=== PATIENT | male | born 1950 | race African-American/Black ===

== ENCOUNTER 2022-06-04 11:24 | Inpatient (IN) | payer BC, MEDICAID ==
[~2022-06-04] VITALS: Ht 175.3 cm; Wt 118.6 kg
[2022-06-04] MEDS ORDERED: ASPIRIN 81MG TABLET PO ONE (12:15)
[2022-06-04 12:53] LABS: BASOPHILS % 0.5 % (0.0-2.0); EOSINOPHILS % 0.7 % (0.0-5.0); HEMATOCRIT. 43.1 % (42.0-52.0); HEMOGLOBIN. 14.6 g/dL (14.0-18.0); LYMPHOCYTES % 12.4 % (20.0-50.0); MEAN CORPUSCULAR HEMOGLOBIN 31.5 pg (28.0-32.0); MEAN CORPUSCULAR VOLUME 93.1 fL (80.0-94.0); MEAN PLATELET VOLUME 7.4 fl (7.4-10.4); NEUTROPHILS % 78.4 % (40.0-76.0); PLATELET 193 x1000/uL (130-400); RED BLOOD CELL COUNT 4.62 mill/uL (4.7-6.1); RED CELL DISTRIBUTION WIDTH 13.8 % (11.6-14.6)
[2022-06-04 13:05] LABS: INR 1.1; PROTHROMBIN TIME 11.9 sec (9.6-11.0)
[2022-06-04 13:06] LABS: CHLORIDE 105 mEq/L (98-107)
[2022-06-04] MEDS ORDERED: ASPIRIN 81MG TABLET PO NR (13:15)
[2022-06-04 13:19] LABS: ETHANOL BLOOD < 10 mg/dL
[2022-06-04] MEDS ORDERED: CEFTRIAXONE 2 G PREMIX 50 ML IV ONE (15:00)
[2022-06-04] MEDS ORDERED: AZITHROMYCIN 500MG/250ML 250 ML IV ONE (15:00)
[2022-06-04] MEDS ORDERED: CEFTRIAXONE 2 G in DEXTROSE 5% WATER 50 ML IV NR (15:30)
[2022-06-04 16:02] LABS: *AMPHETAMINES SCREEN URINE NEGATIVE (NEGATIVE); *BARBITURATES SCREEN URINE NEGATIVE (NEGATIVE); *BENZODIAZEPINES SCREEN URINE NEGATIVE (NEGATIVE); *COCAINE SCREEN URINE NEGATIVE (NEGATIVE); CANNABINOID URINE SCREEN NEGATIVE (NEGATIVE); METHADONE URINE SCREEN NEGATIVE (NEGATIVE); OPIATES URINE SCREEN PRESUMTIVE POSITIVE (NEGATIVE); PHENCYCLIDINE URINE SCREEN NEGATIVE (NEGATIVE)
[2022-06-05 05:38] VITALS: BP 115/90
[2022-06-05] MEDS ORDERED: LATA2.5D14 EACHEYE (05:39)
[2022-06-05] MEDS ORDERED: OMEP40CA20 PO (05:39)
[2022-06-05] MEDS ORDERED: BUPR-113 PO (05:39)
[2022-06-05] MEDS ORDERED: VENL75CA56 PO (05:39)
[2022-06-05] MEDS ORDERED: LOSA100T32 PO (05:39)
[2022-06-05] MEDS ORDERED: TRAZ-252 PO (05:39)
[2022-06-05] MEDS ORDERED: SILD100T69 PO (05:39)
[2022-06-05] MEDS ORDERED: BIMA2.5D4 EACHEYE (05:39)
[2022-06-05] MEDS ORDERED: ATOR20TA65 PO (05:39)
[2022-06-05] MEDS ORDERED: RIVA20TA PO (05:39)
[2022-06-05] MEDS ORDERED: NORT50CA PO (05:39)
[2022-06-05 05:44] VITALS: BP 115/90
[2022-06-05] MEDS ORDERED: REGADENOSON 0.4 MG/5 ML IV SCH (07:45)
[2022-06-05 08:00] VITALS: BP 134/80
[2022-06-05 08:11] LABS: BASOPHILS % 0.4 % (0.0-2.0); EOSINOPHILS % 1.4 % (0.0-5.0); HEMATOCRIT. 41.1 % (42.0-52.0); HEMOGLOBIN. 14.1 g/dL (14.0-18.0); LYMPHOCYTES % 17.2 % (20.0-50.0); MEAN CORPUSCULAR HEMOGLOBIN 32.4 pg (28.0-32.0); MEAN CORPUSCULAR VOLUME 94.5 fL (80.0-94.0); MEAN PLATELET VOLUME 7.8 fl (7.4-10.4); MONOCYTES % 6.9 % (2.0-8.0); NEUTROPHILS % 74.1 % (40.0-76.0); PLATELET 161 x1000/uL (130-400); RED BLOOD CELL COUNT 4.35 mill/uL (4.7-6.1); RED CELL DISTRIBUTION WIDTH 13.5 % (11.6-14.6)
[2022-06-05 08:23] LABS: CHLORIDE 104 mEq/L (98-107)
[2022-06-05] MEDS: PANTOPRAZOLE 40MG DR TABLET PO SCH (10:48)
[2022-06-05] MEDS: LOSARTAN POTASSIUM 100 MG TABLET PO SCH (10:48)
[2022-06-05 12:00] VITALS: BP 120/86
[2022-06-05] MEDS ORDERED: AZITHROMYCIN 500 MG in DEXT 5% WATER 250 ML IV SCH (15:00)
[2022-06-05] MEDS ORDERED: CEFTRIAXONE 1,000 MG in DEXTROSE 5% WATER 50 ML IV SCH (15:00)
[2022-06-05 16:00] VITALS: BP 146/86
[2022-06-05] MEDS ORDERED: RIVAROXABAN 20 MG TABLET PO SCH (17:00)
[2022-06-05 20:00] VITALS: BP 122/81
[2022-06-05] MEDS ORDERED: LATANOPROST 0.005% OPHTH DROPS 2.5ML EACHEYE SCH (21:00)
[2022-06-05] MEDS ORDERED: BIMATOPROST EACHEYE SCH (21:00)
[2022-06-05] MEDS ORDERED: ATORVASTATIN CALCIUM 20MG TABLET PO SCH (21:00)
[2022-06-06] VITALS: BP 155/93
[2022-06-06 08:00] VITALS: BP 131/85
[2022-06-06] MEDS ORDERED: REGADENOSON 0.4 MG/5 ML IV NR (08:30)
[2022-06-06] MEDS: PANTOPRAZOLE 40MG DR TABLET PO SCH (10:58)
[2022-06-06] MEDS: LOSARTAN POTASSIUM 100 MG TABLET PO SCH (10:58)
[2022-06-06 12:00] VITALS: BP 145/69
[2022-06-06 12:40] VITALS: BP 145/69
[2022-06-06] MEDS ORDERED: CARVEDILOL 3.125 MG TABLET PO SCH (21:00)
[2022-06-07] MEDS ORDERED: FAMOTIDINE 20MG TABLET PO SCH (07:40)
== END 2022-06-06 14:40 | disposition home or self-care (01) | DRG 205 ==
LOC: ER 11:24 → MICUSO 16:37 → EDBEDREQ 16:38 → EDBEDREQTM 16:38 → 7WST 06-05 05:34
PROVIDERS: ADMIT Internal Medicine; ATTEND Internal Medicine
DX: M94.0 Chondrocostal junction syndrome [Tietze] (principal); N17.0 Acute kidney failure with tubular necrosis; E44.1 Mild protein-calorie malnutrition; I42.9 Cardiomyopathy, unspecified; I48.0 Paroxysmal atrial fibrillation; I10 Essential (primary) hypertension; Z20.822 Contact with and (suspected) exposure to COVID-19; I25.10 Atherosclerotic heart disease of native coronary artery without angina pectoris; E78.00 Pure hypercholesterolemia, unspecified; F41.9 Anxiety disorder, unspecified; Z88.0 Allergy status to penicillin; Z68.38 Body mass index [BMI] 38.0-38.9, adult; Z95.5 Presence of coronary angioplasty implant and graft
CPT/HCPCS: 36415; 71045; 78452; 80048; 80053; 80305; 80320; 83880; 84484; 85025; 87426; 93005; 93017; 93306; 99285; A9500; C9803; J0456; J0696; J2785; J7060; G0480

== ENCOUNTER 2023-09-22 14:51 | Emergency (ER) | payer BC, MEDICAID ==
[~2023-09-22] VITALS: Ht 177.8 cm; Wt 109.0 kg
[~2023-09-22 14:51] MED LIST: ATOR20TA65 PO; BIMA2.5D4 EACHEYE; BUPR-113 PO; LATA2.5D14 EACHEYE; LOSA100T33 PO; NORT50CA PO; OMEP40CA20 PO; RIVA20TA PO; SILD100T69 PO; TRAZ-252 PO; VENL75CA56 PO
[2023-09-22 14:52] VITALS: O2SAT 98
[2023-09-22] MEDS: ACETAMINOPHEN 325MG TABLET PO ONE (16:20)
[2023-09-22] MEDS ORDERED: NAPR500T7 MT (17:33)
[2023-09-22 17:56] VITALS: BP 122/90; PULSE 88; RESP 16; TEMP 98.6
== END 2023-09-22 18:09 | disposition home or self-care (01) ==
LOC: ER 14:51
DX: S09.90XA Unspecified injury of head, initial encounter (principal); M25.512 Pain in left shoulder; M25.552 Pain in left hip; M25.562 Pain in left knee; M54.2 Cervicalgia; I10 Essential (primary) hypertension; E78.00 Pure hypercholesterolemia, unspecified; W22.8XXA Striking against or struck by other objects, initial encounter; Z98.890 Other specified postprocedural states; Z88.0 Allergy status to penicillin; Z79.899 Other long term (current) drug therapy; Y93.89 Activity, other specified; Y92.89 Other specified places as the place of occurrence of the external cause; Y99.8 Other external cause status
CPT/HCPCS: 72131; 73030; 73502; 73560; 99284

== ENCOUNTER 2024-06-30 14:07 | Emergency (ER) | payer BC, MEDICAID ==
[~2024-06-30] VITALS: Ht 175.3 cm; Wt 106.0 kg
[~2024-06-30 14:07] MED LIST changes: +AMLO10TA4 MT; +ASPI-1497 MT; -BUPR-113 PO; +FURO-151 MT; -NORT50CA PO; -OMEP40CA20 PO; -RIVA20TA PO; -SILD100T69 PO; -TRAZ-252 PO; -VENL75CA56 PO
[2024-06-30 14:15] VITALS: O2SAT 96
[2024-06-30 14:22] VITALS: BP 113/62; PULSE 101; RESP 16; TEMP 98.2; O2SAT 97
[2024-06-30] MEDS ORDERED: TRIA15CR61 TP (16:36)
[2024-06-30] MEDS ORDERED: PERM60CR4 TP (16:36)
[2024-06-30] MEDS ORDERED: DIPH28.34 TP (16:36)
== END 2024-06-30 17:15 | disposition home or self-care (01) ==
LOC: ER 14:28
DX: L41.3 Small plaque parapsoriasis (principal); I10 Essential (primary) hypertension; E78.00 Pure hypercholesterolemia, unspecified; F41.9 Anxiety disorder, unspecified; Z79.82 Long term (current) use of aspirin; Z79.899 Other long term (current) drug therapy; Z98.890 Other specified postprocedural states; Z88.0 Allergy status to penicillin
CPT/HCPCS: 99283

== ENCOUNTER 2024-11-22 22:47 | Emergency (ER) | payer BC, MEDICAID ==
[~2024-11-22] VITALS: Ht 177.8 cm; Wt 105.0 kg
[~2024-11-22 22:47] MED LIST changes: -AMLO10TA4 MT; -ASPI-1497 MT; -BIMA2.5D4 EACHEYE; +BUPR-113 MT; +FLUO40CA49 MT; +HYDR-4009 MT; -LATA2.5D14 EACHEYE; +LOSA100T33 MT; -LOSA100T33 PO; +METO5TAB7 MT
[2024-11-22 23:16] VITALS: O2SAT 99
[2024-11-23] MEDS ORDERED: CLIN45GE10 TP (01:38)
[2024-11-23 02:09] VITALS: BP 131/91; PULSE 84; RESP 15; TEMP 36.8; O2SAT 98
== END 2024-11-23 02:08 | disposition home or self-care (01) ==
LOC: ER 22:47
DX: L02.821 Furuncle of head [any part, except face] (principal); E78.00 Pure hypercholesterolemia, unspecified; I10 Essential (primary) hypertension; Z79.899 Other long term (current) drug therapy; Z88.0 Allergy status to penicillin; Z98.890 Other specified postprocedural states
CPT/HCPCS: 99283

== ENCOUNTER 2024-11-23 02:48 | Emergency (ER) | payer BC, MEDICAID ==
[~2024-11-23] VITALS: Ht 177.8 cm; Wt 109.0 kg
[~2024-11-23 02:48] MED LIST changes: +CLIN45GE10 TP
[2024-11-23 02:52] VITALS: TEMP 36.9; O2SAT 100
[2024-11-23 04:02] VITALS: BP 145/90; PULSE 85; RESP 20; O2SAT 97
== END 2024-11-23 03:56 | disposition home or self-care (01) ==
LOC: ER 03:11
DX: L02.821 Furuncle of head [any part, except face] (principal); E78.00 Pure hypercholesterolemia, unspecified; I10 Essential (primary) hypertension; Z98.890 Other specified postprocedural states; Z79.899 Other long term (current) drug therapy; Z88.0 Allergy status to penicillin
CPT/HCPCS: 99281; 99282